=== PATIENT | male | born 1955 | race Caucasian/White ===

== ENCOUNTER → 2018-08-04 | Outpatient (CLI) | payer BC ==
--- NOTE | 2018-08-04 14:09 | ECHOS ---
STRESS ECHOCARDIOGRAM INDICATIONS: Family history. MEDICATIONS: Amlodipine, benazepril. BASELINE HEART RATE: 79 BASELINE BLOOD PRESSURE: 146/58 MAXIMUM HEART RATE: 144 MAXIMUM BLOOD PRESSURE: 218/68 85% MPHR: 133 100% MPHR: 157 METS: 8.7 MAXIMUM STAGE REACHED: 3 TOTAL EXERCISE TIME: 7:15 CLINICAL INFORMATION: Patient was exercised for a total period of 7 minutes, a peak heart rate of 144 was achieved. Maximum blood pressure of 218/68 mmHg was noted. Resting EKG shows normal sinus rhythm with normal [place] interval and QRS duration and normal ST-T waves. No ST- segment depression suggestive of ischemia was noted. No dysrhythmias were noted. Occasional PVCs were noted in the postexercise period. The baseline echocardiographic images reveals normal left ventricular chamber size with normal left ventricular systolic function. In the immediate postexercise period normal increase in the wall thickness and contractility is noted. FINAL IMPRESSION: This stress echocardiographic study is negative for stress-induced ischemia. EKG portion of the stress test is not suggestive of ischemia. Occasional premature ventricular contractions are noted. MMODL / IJN: [id number] /
== END | disposition home or self-care (01) ==
LOC: RADNMMAIN 08:52
PROVIDERS: ATTEND Family Medicine
DX: I49.3 Ventricular premature depolarization (principal); I10 Essential (primary) hypertension; Z82.41 Family history of sudden cardiac death
CPT/HCPCS: 93351